=== PATIENT | male | born 1990 | race Caucasian/White ===

== ENCOUNTER 2018-04-11 03:33 | Emergency (ER) | payer MEDICAID ==
[~2018-04-11] VITALS: Ht 172.7 cm; Wt 100.0 kg
[2018-04-11] MEDS ORDERED: BUPIVACAINE HCL/PF 0.25% 10 ML VIAL INJ ONE (04:30)
[2018-04-11 04:45] VITALS: BP 142/95
== END 2018-04-11 05:14 | disposition home or self-care (01) ==
LOC: EMS 03:33
DX: K02.9 Dental caries, unspecified (principal)
CPT/HCPCS: 64400; 99284; J3490; 99283